=== PATIENT | female | born 1995 | race Two or more races ===

== ENCOUNTER 2019-08-22 21:26 | Emergency (ER) | payer BC, MEDICAID ==
[~2019-08-22] VITALS: Ht 175.3 cm; Wt 72.6 kg
[2019-08-22] MEDS ORDERED: FOLIC ACID 1 MG, MULTIPLE VITAMIN 10 ML, MAGNESIUM SULF SDV 50% 8 MEQ, THIAMINE INJ 100... INJ SCH ×5 (22:00)
[2019-08-22 22:22] LABS: Basophils # (auto) 0.1 10 ^3/uL (0-0.2); Basophils % (auto) 0.8 % (0.0-2.0); Eosinophils # (auto) 0 10 ^3/uL (0-0.8); Eosinophils % (auto) 0.1 % (0.0-7.0); Hematocrit 46.7 % (36.0-46.0); Hemoglobin 15.7 g/dL (12.2-16.2); Lymphocytes # (auto) 2.3 10 ^3/uL (0.4-5.4); Lymphocytes % (auto) 28.6 % (10.0-50.0); Mean Corpuscular Hemoglobin 29.3 pg (28.0-32.0); Mean Corpuscular Hgb Conc. 33.5 g/dL (32.0-36.0); Mean Corpuscular Volume 87.4 fL (80.0-100.0); Monocytes # (auto) 0.2 10 ^3/uL (0-1.3); Neutrophils # (auto) 5.4 10 ^3/uL (1.6-8.6); Neutrophils % (auto) 68.5 % (37.0-80.0); Nucleated Red Blood Cells % 0.1 %; Platelet Count (auto) 364 10^3/uL (140-450); Red Blood Cells 5.34 10^6/uL (4.0-5.20); Red Cell Distribution Width 14.6 % (11.8-14.3); White Blood Cell 7.9 10^3/uL (4.4-10.8)
[2019-08-22 22:38] LABS: Acetaminophen < 2.0 ug/mL (10-30); Albumin 3.8 g/dL (3.4-5.0); BUN/Creatinine Ratio 13.7; Calcium 8.6 mg/dL (8.5-10.1); Magnesium 2.1 mg/dL (1.6-2.6); Potassium 3.6 mmol/L (3.5-5.1); Salicylate < 1.7 mg/dL (2.8-20.0)
[2019-08-22 22:46] LABS: Bilirubin, Total 0.4 mg/dL (0.2-1.0); Total Protein 8.1 g/dL (6.4-8.2)
[2019-08-22 23:11] LABS: Urine Bacteria NONE SEEN /hpf (None Seen); Urine Blood 2+ /uL (Negative); Urine Specific Gravity 1.003 (1.001-1.035); Urine WBC <1 /hpf (0 - 5)
[2019-08-22 23:26] LABS: Amphetamine Screen, Urine NEGATIVE (NEGATIVE); Barbiturate Scree,Urine NEGATIVE (NEGATIVE); Benzodiazephine Screen, Urine NEGATIVE (NEGATIVE); Cannabinoid Screen, Urine NEGATIVE (NEGATIVE); Cocaine Screen, Urine NEGATIVE (NEGATIVE); Opiate Scree,Urine NEGATIVE (NEGATIVE); Phencyclidine Screen, Urine NEGATIVE (NEGATIVE)
[2019-08-23 00:33] VITALS: BP 94/54
== END 2019-08-23 02:14 | disposition home or self-care (01) ==
LOC: ER 21:27
DX: G92 Toxic encephalopathy (principal); F10.129 Alcohol abuse with intoxication, unspecified; J45.909 Unspecified asthma, uncomplicated; Y90.0 Blood alcohol level of less than 20 mg/100 ml; Z88.0 Allergy status to penicillin
CPT/HCPCS: 36415; 80053; 80307; 80320; 80329; 81001; 83735; 84702; 85025; 96365; 96366; 99283; J3411; J3475; J7070

== ENCOUNTER 2019-11-20 15:17 | Emergency (ER) | payer BC, MEDICAID ==
[~2019-11-20] VITALS: Ht 167.6 cm; Wt 68.0 kg
[2019-11-20] MEDS ORDERED: SODIUM CHLORIDE 0.9% 1,000 ML IVB ONE (15:25)
[2019-11-20 16:24] LABS: Basophils # (auto) 0 10 ^3/uL (0-0.2); Basophils % (auto) 0.7 % (0.0-2.0); Eosinophils # (auto) 0 10 ^3/uL (0-0.8); Eosinophils % (auto) 0.4 % (0.0-7.0); Hematocrit 44.1 % (36.0-46.0); Hemoglobin 14.5 g/dL (12.2-16.2); Lymphocytes # (auto) 1.9 10 ^3/uL (0.4-5.4); Lymphocytes % (auto) 30.2 % (10.0-50.0); Mean Corpuscular Hemoglobin 28.9 pg (28.0-32.0); Mean Corpuscular Hgb Conc. 32.9 g/dL (32.0-36.0); Mean Corpuscular Volume 87.8 fL (80.0-100.0); Monocytes # (auto) 0.2 10 ^3/uL (0-1.3); Monocytes % (auto) 3.6 % (0.0-12.0); Neutrophils # (auto) 4.2 10 ^3/uL (1.6-8.6); Neutrophils % (auto) 65.1 % (37.0-80.0); Nucleated Red Blood Cells % 0.1 %; Platelet Count (auto) 283 10^3/uL (140-450); Red Blood Cells 5.02 10^6/uL (4.0-5.20); Red Cell Distribution Width 14.2 % (11.8-14.3); White Blood Cell 6.4 10^3/uL (4.4-10.8)
[2019-11-20 16:27] LABS: Urine WBC None Seen /hpf (0 - 5)
[2019-11-20 16:38] LABS: Albumin 3.9 g/dL (3.4-5.0); BUN/Creatinine Ratio 10.8; Calcium 8.6 mg/dL (8.5-10.1); Potassium 4.1 mmol/L (3.5-5.1)
[2019-11-20 16:45] LABS: Bilirubin, Total 0.3 mg/dL (0.2-1.0); Total Protein 7.6 g/dL (6.4-8.2)
[2019-11-20 16:49] LABS: Urine Bacteria NONE SEEN /hpf (None Seen); Urine Blood Negative /uL (Negative); Urine Mucus FEW (None Seen); Urine Specific Gravity 1.004 (1.001-1.035)
[2019-11-20 16:53] LABS: Barbiturate Scree,Urine NEGATIVE (NEGATIVE); Benzodiazephine Screen, Urine NEGATIVE (NEGATIVE); Cannabinoid Screen, Urine NEGATIVE (NEGATIVE); Cocaine Screen, Urine NEGATIVE (NEGATIVE); Opiate Scree,Urine NEGATIVE (NEGATIVE); Phencyclidine Screen, Urine NEGATIVE (NEGATIVE)
[2019-11-20 17:05] LABS: Amphetamine Screen, Urine NEGATIVE (NEGATIVE)
[2019-11-20 18:19] VITALS: BP 119/67
== END 2019-11-20 20:43 | disposition home or self-care (01) ==
LOC: EDBD 15:17 → ER 15:17
DX: S16.1XXA Strain of muscle, fascia and tendon at neck level, initial encounter (principal); F10.920 Alcohol use, unspecified with intoxication, uncomplicated; Z88.0 Allergy status to penicillin; V49.9XXA Car occupant (driver) (passenger) injured in unspecified traffic accident, initial encounter; Y93.89 Activity, other specified; Y92.89 Other specified places as the place of occurrence of the external cause; Y99.8 Other external cause status
CPT/HCPCS: 36415; 72125; 80053; 80307; 80320; 81001; 81025; 85025; 93005; 96360; 99285; J7030

== ENCOUNTER 2020-10-28 11:39 | Inpatient (IN) | payer MEDICAID ==
[~2020-10-28] VITALS: Ht 175.3 cm; Wt 0.5 kg
[2020-10-28] MEDS ORDERED: DERMOPLAST 60ML BOTTLE TOP PRN (14:00)
[2020-10-28] MEDS ORDERED: PHISODERM TOP SOLN 240ML BTL TOP PRN (14:00)
[2020-10-28] MEDS ORDERED: BUTORPHANOL TARTRATE 2 MG/1 ML VIAL IV PRN (14:00)
[2020-10-28] MEDS ORDERED: PROMETHAZINE HCL 25 MG/ML 1ML IV PRN (14:00)
[2020-10-28] MEDS ORDERED: WITCH HAZEL-GLYCERIN PAD TOP PRN (14:00)
[2020-10-28] MEDS ORDERED: LIDOCAINE 2%HCL (LOCAL ANESTH.) INJ 20ML MDV IJ PRN (14:00)
[2020-10-28 14:53] LABS: Urine Bacteria FEW /hpf (None Seen); Urine Blood Negative /uL (Negative); Urine Specific Gravity 1.011 (1.001-1.035); Urine WBC 4 /hpf (0 - 5)
[2020-10-28 14:59] LABS: Basophils # (auto) 0 10 ^3/uL (0-0.2); Basophils % (auto) 0.2 % (0.0-2.0); Eosinophils # (auto) 0.1 10 ^3/uL (0-0.8); Eosinophils % (auto) 0.6 % (0.0-7.0); Hematocrit 33.3 % (36.0-46.0); Hemoglobin 11.3 g/dL (12.2-16.2); Lymphocytes # (auto) 1.8 10 ^3/uL (0.4-5.4); Mean Corpuscular Hemoglobin 27.9 pg (28.0-32.0); Mean Corpuscular Hgb Conc. 33.8 g/dL (32.0-36.0); Mean Corpuscular Volume 82.8 fL (80.0-100.0); Monocytes # (auto) 0.6 10 ^3/uL (0-1.3); Monocytes % (auto) 4.9 % (0.0-12.0); Neutrophils # (auto) 9.4 10 ^3/uL (1.6-8.6); Neutrophils % (auto) 79.3 % (37.0-80.0); Nucleated Red Blood Cells % 0.2 %; Red Blood Cells 4.03 10^6/uL (4.0-5.20); Red Cell Distribution Width 13.7 % (11.8-14.3); White Blood Cell 11.8 10^3/uL (4.4-10.8)
[2020-10-28 15:09] LABS: Albumin 2.7 g/dL (3.4-5.0); Calcium 8.6 mg/dL (8.5-10.1); Potassium 3.7 mmol/L (3.5-5.1)
[2020-10-28 15:12] LABS: Amphetamine Screen, Urine NEGATIVE (NEGATIVE); Barbiturate Scree,Urine NEGATIVE (NEGATIVE); Benzodiazephine Screen, Urine NEGATIVE (NEGATIVE); Cannabinoid Screen, Urine NEGATIVE (NEGATIVE); Cocaine Screen, Urine NEGATIVE (NEGATIVE); Opiate Scree,Urine NEGATIVE (NEGATIVE); Phencyclidine Screen, Urine NEGATIVE (NEGATIVE)
[2020-10-28 15:13] LABS: Bilirubin, Total 0.3 mg/dL (0.2-1.0); Total Protein 6.9 g/dL (6.4-8.2)
[2020-10-28 15:14] LABS: INR 0.92 (0.9-1.15)
[2020-10-28] MEDS: LACTATED RINGER'S 1,000 ML IV SCH ×2 (16:07→22:16)
[2020-10-28] MEDS: miSOPROStol 50 MCG per PRE-CUT 1/2 TAB PO PRN (20:00)
[2020-10-29] MEDS: miSOPROStol 50 MCG per PRE-CUT 1/2 TAB PO PRN (00:01)
[2020-10-29] MEDS ORDERED: PRENMIS19 OR (00:55)
[2020-10-29] MEDS ORDERED: PRENCAP87 OR (00:55)
[2020-10-29] MEDS ORDERED: TERBUTALINE SULFATE 1 MG/ML 1ML VIAL SC ONE (01:45)
[2020-10-29] MEDS ORDERED: LIDOCAINE 2%HCL (LOCAL ANESTH.) INJ 20ML MDV IJ PRN (01:45)
[2020-10-29] MEDS ORDERED: LACT. RINGERS/OXYTOCIN 20UNITS 500 ML IV ONE ×2 (01:45→02:15)
[2020-10-29] MEDS ORDERED: LACT. RINGERS/OXYTOCIN 20UNITS 1,000 ML IV SCH (01:45)
[2020-10-29] MEDS ORDERED: PROMETHAZINE HCL 25 MG/ML 1ML IM ONE (01:45)
[2020-10-29] MEDS: BUTORPHANOL TARTRATE 2 MG/1 ML VIAL IV PRN ×3 (01:45→07:01)
[2020-10-29] MEDS ORDERED: ceFAZolin 2 GM in D5W 5% 100 ML IV ONE (06:15)
[2020-10-29] MEDS ORDERED: PROMETHAZINE HCL 25 MG/ML 1ML IM PRN (06:30)
[2020-10-29 07:06] LABS: RPR Non Reactive (Non Reactive)
[2020-10-29] MEDS ORDERED: IBUPROFEN 600 MG TAB PO PRN (08:15)
[2020-10-29 11:00] VITALS: BP 115/82
[2020-10-29 15:00] VITALS: BP 114/67
[2020-10-29] MEDS ORDERED: ceFAZolin 1GM/50ML 50 ML IV SCH (15:00)
[2020-10-29 18:36] VITALS: BP 113/63
[2020-10-29 23:23] VITALS: BP 114/53
[2020-10-30 02:52] VITALS: BP 98/57
[2020-10-30 06:56] VITALS: BP 117/74
[2020-10-30 11:00] VITALS: BP 114/73
== END 2020-10-30 13:23 | disposition home or self-care (01) | DRG 560 ==
LOC: LDRP 11:39 → OBSVTOIN 13:55 → LDRP 13:56
PROVIDERS: ADMIT Obstetrics & Gynecology; ATTEND Obstetrics & Gynecology
PROC: 10E0XZZ Delivery of Products of Conception, External Approach (ICD-10-PCS; principal; 2020-10-29)
DX: O42.92 Full-term premature rupture of membranes, unspecified as to length of time between rupture and onset of labor (principal); O69.81X0 Labor and delivery complicated by cord around neck, without compression, not applicable or unspecified; Z20.822 Contact with and (suspected) exposure to COVID-19; Z37.0 Single live birth; Z3A.37 37 weeks gestation of pregnancy; Z88.0 Allergy status to penicillin
CPT/HCPCS: 36415; 59025; 59409; 76815; 80053; 80307; 81001; 81002; 84112; 85025; 85610; 85730; 86592; 86762; 86850; 86900; 86901; 87426; 94760; 96360; 96361; 96365; 96366; 96372; 96374; 96375; G0378; J0690; J2590; J7060

== ENCOUNTER 2022-11-03 18:27 | Observation (INO) | payer MEDICAID ==
[~2022-11-03] VITALS: Ht 175.3 cm; Wt 95.3 kg
[~2022-11-03 18:27] MED LIST: PRENCAP87 OR
== END 2022-11-03 20:41 | disposition home or self-care (01) ==
LOC: LDRP 18:27
PROVIDERS: ADMIT Obstetrics & Gynecology; ATTEND Obstetrics & Gynecology
DX: O42.913 Preterm premature rupture of membranes, unspecified as to length of time between rupture and onset of labor, third trimester (principal); O26.893 Other specified pregnancy related conditions, third trimester; N89.8 Other specified noninflammatory disorders of vagina; O62.9 Abnormality of forces of labor, unspecified; Z3A.33 33 weeks gestation of pregnancy
CPT/HCPCS: 59025; 81002; 84112; 94760; G0378; Q0114

== ENCOUNTER 2022-12-17 15:30 | Inpatient (IN) | payer MEDICAID ==
[~2022-12-17] VITALS: Ht 175.3 cm; Wt 99.3 kg
[2022-12-17] MEDS ORDERED: CLINDAMYCIN 600MG IV 50 ML IV SCH (16:00)
[2022-12-17] MEDS ORDERED: DERMOPLAST 60ML BOTTLE TOP PRN (16:00)
[2022-12-17] MEDS ORDERED: LIDOCAINE 2%HCL (LOCAL ANESTH.) INJ 20ML MDV IJ PRN (16:00)
[2022-12-17] MEDS ORDERED: PROMETHAZINE HCL 25 MG/ML 1ML IV PRN (16:00)
[2022-12-17] MEDS ORDERED: WITCH HAZEL-GLYCERIN PAD TOP PRN (16:00)
[2022-12-17] MEDS ORDERED: LACT. RINGERS/OXYTOCIN 20UNITS 1,000 ML IV SCH (16:00)
[2022-12-17] MEDS ORDERED: LACT. RINGERS/OXYTOCIN 20UNITS 500 ML IV ONE ×2 (16:00→16:30)
[2022-12-17] MEDS ORDERED: TERBUTALINE SULFATE 1 MG/ML 1ML VIAL SC PRN (16:00)
[2022-12-17] MEDS ORDERED: LACTATED RINGER'S 1,000 ML IV SCH (16:00)
[2022-12-17] MEDS ORDERED: PROMETHAZINE HCL 25 MG/ML 1ML IM PRN (16:00)
[2022-12-17] MEDS ORDERED: BUTORPHANOL TARTRATE 2 MG/1 ML VIAL IV PRN ×2 (16:00)
[2022-12-17] MEDS ORDERED: PHISODERM TOP SOLN 240ML BTL TOP PRN (16:00)
[2022-12-17 16:31] LABS: Urine Bacteria NONE SEEN /hpf (None Seen); Urine Blood 3+ /uL (Negative); Urine Sperm PRESENT /hpf (None Seen); Urine WBC 31 /hpf (0 - 5)
[2022-12-17 16:32] LABS: Basophils # (auto) 0 10 ^3/uL (0-0.2); Basophils % (auto) 0.3 % (0.0-2.0); Eosinophils # (auto) 0.1 10 ^3/uL (0-0.8); Eosinophils % (auto) 0.7 % (0.0-7.0); Hematocrit 30.9 % (36.0-46.0); Hemoglobin 9.8 g/dL (12.2-16.2); Lymphocytes # (auto) 1.9 10 ^3/uL (0.4-5.4); Mean Corpuscular Hgb Conc. 31.8 g/dL (32.0-36.0); Mean Corpuscular Volume 75.5 fL (80.0-100.0); Monocytes # (auto) 0.4 10 ^3/uL (0-1.3); Monocytes % (auto) 3.6 % (0.0-12.0); Neutrophils # (auto) 8.6 10 ^3/uL (1.6-8.6); Neutrophils % (auto) 78.4 % (37.0-80.0); Nucleated Red Blood Cells % 0.1 %; Red Cell Distribution Width 16.9 % (11.8-14.3); White Blood Cell 10.9 10^3/uL (4.4-10.8)
[2022-12-17 16:40] LABS: INR 0.94 (0.9-1.15); Partial Thromboplastin Time 24.9 SEC (24.5-34.5)
[2022-12-17 16:46] LABS: Albumin 2.6 g/dL (3.4-5.0); Potassium 3.5 mmol/L (3.5-5.1)
[2022-12-17 16:50] LABS: Alcohol, Urine < 3.0 mg/dL (0-10); Amphetamine Screen, Urine NEGATIVE (NEGATIVE); Barbiturate Scree,Urine NEGATIVE (NEGATIVE); Benzodiazephine Screen, Urine NEGATIVE (NEGATIVE); Cannabinoid Screen, Urine NEGATIVE (NEGATIVE); Cocaine Screen, Urine NEGATIVE (NEGATIVE); Opiate Scree,Urine NEGATIVE (NEGATIVE); Phencyclidine Screen, Urine NEGATIVE (NEGATIVE)
[2022-12-17 16:51] LABS: Bilirubin, Total 0.2 mg/dL (0.2-1.0)
[2022-12-17] MEDS ORDERED: NALBUPHINE HCL 10 MG/1ml INJECTION IV PRN (17:00)
[2022-12-17] MEDS ORDERED: METHYLERGONOVINE MALEATE 0.2 MG/ML AMP IM ONE ×2 (18:06→18:15)
[2022-12-17] MEDS ORDERED: ONDANSETRON ODT 4 MG TAB PO PRN (18:30)
[2022-12-17] MEDS: ACETAMINOPHEN 325 MG TAB PO PRN (19:05)
[2022-12-17 19:16] VITALS: BP 134/72
[2022-12-17] MEDS: DOCUSATE SOD 100 MG CAP PO SCH (21:41)
[2022-12-17] MEDS: IBUPROFEN 800 MG TAB PO PRN (23:04)
[2022-12-17 23:07] VITALS: BP 110/59
[2022-12-18] MEDS ORDERED: IBUPROFEN 800 MG TAB PO SCH
[2022-12-18 03:07] VITALS: BP 102/51
[2022-12-18] MEDS: IBUPROFEN 800 MG TAB PO PRN ×3 (07:10→23:09)
[2022-12-18 07:11] VITALS: BP 118/51
[2022-12-18 11:27] VITALS: BP 121/71
[2022-12-18] MEDS ORDERED: TETANUS-DIPTH-ACEL PERTUSSIS 0.5ML SYR Tdap IM ONE (14:00)
[2022-12-18 15:12] VITALS: BP 123/78
[2022-12-18 19:00] VITALS: BP 122/65
[2022-12-18] MEDS: DOCUSATE SOD 100 MG CAP PO SCH (22:00)
[2022-12-18 23:20] VITALS: BP 117/74
[2022-12-19] MEDS: ACETAMINOPHEN 325 MG TAB PO PRN (03:12)
[2022-12-19 03:24] VITALS: BP 104/66
[2022-12-19 07:01] VITALS: BP 114/69
[2022-12-19 07:07] LABS: RPR Non Reactive (Non Reactive)
[2022-12-19 10:41] VITALS: BP 130/82
[2022-12-19] MEDS: IBUPROFEN 800 MG TAB PO PRN (11:00)
== END 2022-12-19 18:17 | disposition home or self-care (01) | DRG 560 ==
LOC: LDRP 15:30 → UNDOADMOB 15:30 → LDRP 15:56 → INTOOBSV 15:56 → OBSVTOIN 15:56
PROVIDERS: ADMIT Obstetrics & Gynecology; ATTEND Obstetrics & Gynecology
PROC: 10E0XZZ Delivery of Products of Conception, External Approach (ICD-10-PCS; principal; 2022-12-17)
PROC: 0HQ9XZZ Repair Perineum Skin, External Approach (ICD-10-PCS; 2022-12-17)
DX: O99.824 Streptococcus B carrier state complicating childbirth (principal); Z37.0 Single live birth; O99.345 Other mental disorders complicating the puerperium; F53.0 Postpartum depression; O70.0 First degree perineal laceration during delivery; Z3A.39 39 weeks gestation of pregnancy
CPT/HCPCS: 36415; 59025; 59409; 80053; 80307; 81001; 81002; 85025; 85610; 85730; 86592; 86850; 86900; 86901; 90471; 90715; 94760; 96360; 96361; 96365; 96372; G0378; J2590

== ENCOUNTER 2023-11-11 14:16 | Emergency (ER) | payer MEDICAID ==
[~2023-11-11] VITALS: Ht 175.3 cm; Wt 83.7 kg
[2023-11-11 16:45] LABS: Urine Bacteria None Seen /hpf (None Seen)
[2023-11-11 17:02] LABS: Urine Blood Negative /uL (Negative); Urine Clarity Clear (Clear); Urine Protein, UAD Negative (Negative); Urine Specific Gravity 1.009 (1.001-1.035); Urine Urobilinogen Normal (Negative); Urine WBC <1 /hpf (0 - 5)
[2023-11-11 17:04] LABS: Urine Color STRAW (Yellow)
[2023-11-11 18:04] VITALS: BP 113/68; PULSE 79; RESP 20; O2SAT 98
== END 2023-11-11 18:06 | disposition home or self-care (01) ==
LOC: ER 14:16
DX: O26.892 Other specified pregnancy related conditions, second trimester (principal); R10.2 Pelvic and perineal pain; N89.8 Other specified noninflammatory disorders of vagina; O99.512 Diseases of the respiratory system complicating pregnancy, second trimester; J45.909 Unspecified asthma, uncomplicated; Z79.899 Other long term (current) drug therapy; Z88.0 Allergy status to penicillin; Z3A.16 16 weeks gestation of pregnancy
CPT/HCPCS: 36415; 76805; 81001; 84702

== ENCOUNTER 2023-11-12 14:15 | Emergency (ER) | payer MEDICAID ==
[~2023-11-12] VITALS: Ht 175.3 cm; Wt 83.1 kg
[2023-11-12 18:33] VITALS: BP 137/90; PULSE 90; RESP 12; TEMP 98.6; O2SAT 100
[2023-11-12 19:22] LABS: Vaginal Bacteria None Seen; Vaginal Trichomonas Not Present
[2023-11-12 19:23] LABS: Vaginal Clue Cells None Seen; Vaginal Epithelial Cells Few
[2023-11-12 20:36] LABS: Amphetamine Screen, Urine Neg (NEGATIVE); Barbiturate Scree,Urine Neg (NEGATIVE); Benzodiazephine Screen, Urine Neg (NEGATIVE); Cocaine Screen, Urine Neg (NEGATIVE); Opiate Scree,Urine Neg (NEGATIVE); Phencyclidine Screen, Urine Neg (NEGATIVE)
[2023-11-12 20:39] LABS: Urine Bacteria FEW /hpf (None Seen); Urine Blood Negative /uL (Negative); Urine Clarity Clear (Clear); Urine Color Light-Yellow (Yellow); Urine Protein, UAD Negative (Negative); Urine Specific Gravity 1.013 (1.001-1.035); Urine Urobilinogen Normal (Negative); Urine WBC 1 /hpf (0 - 5)
[2023-11-12 21:27] LABS: Cannabinoid Screen, Urine Neg (NEGATIVE)
== END 2023-11-12 20:47 | disposition home or self-care (01) ==
LOC: ER 14:15
DX: O20.8 Other hemorrhage in early pregnancy (principal); R10.2 Pelvic and perineal pain; O41.02X0 Oligohydramnios, second trimester, not applicable or unspecified; J45.909 Unspecified asthma, uncomplicated; Z3A.16 16 weeks gestation of pregnancy; Z88.0 Allergy status to penicillin; Z79.899 Other long term (current) drug therapy
CPT/HCPCS: 36415; 76815; 80307; 81001; 84702; 87210